=== PATIENT | male | born 1965 | race Hispanic/Latino ===

== ENCOUNTER 2021-11-23 06:42 | Day surgery (SDC) | payer OTHER ==
[2021-11-21 09:00] VITALS: BP 153/76
[2021-11-23] VITALS (14 sets, daily range): BP systolic 110–139; BP diastolic 72–80
[~2021-11-23] VITALS: Ht 175.3 cm; Wt 110.7 kg
[2021-11-23] MEDS ORDERED: LACTATED RINGERS 1000ML 1,000 ML IV ONE (07:11)
[2021-11-23] MEDS ORDERED: LIDOCAINE PF 100MG/5ML (2%) SYRINGE 5ML ONE (07:36)
[2021-11-23] MEDS ORDERED: PROPOFOL 10 MG/ML 20ML VIAL IV ONE (07:36)
[2021-11-23] MEDS ORDERED: FENTANYL CITRATE PF 50 MCG/1 ML 2ML VIAL ONE ×3 (07:37→08:52)
[2021-11-23] MEDS ORDERED: BUPIVACAINE/PF 0.25% 30ML VIAL IJ ONE (07:48)
[2021-11-23] MEDS ORDERED: LIDOCAINE HCL 1% MDV 50ML VIAL ONE (07:48)
[2021-11-23] MEDS ORDERED: BACITRACIN 28.4 GM OINT TP ONE (07:49)
[2021-11-23] MEDS ORDERED: CEFAZOLIN SODIUM 1 GM VIAL IVP ONE (08:00)
[2021-11-23] MEDS ORDERED: FAMOTIDINE 20MG VIAL IV ONE (08:18)
[2021-11-23] MEDS ORDERED: MIDAZOLAM HCL 1 MG/ML 2ML VIAL ONE (08:23)
[2021-11-23] MEDS ORDERED: ONDANSETRON 4MG INJ ONE (08:23)
== END 2021-11-23 11:32 | disposition home or self-care (01) ==
LOC: DAH 06:42
PROVIDERS: ATTEND Urology
DX: N47.1 Phimosis (principal); Z20.822 Contact with and (suspected) exposure to COVID-19; E78.5 Hyperlipidemia, unspecified; E11.9 Type 2 diabetes mellitus without complications; Z79.01 Long term (current) use of anticoagulants; Z79.899 Other long term (current) drug therapy; Z79.84 Long term (current) use of oral hypoglycemic drugs
CPT/HCPCS: 54161; 82948 ×2; 87635; A4215; A4221; A4222; A4223; A4510; A4600; A4663; A6260; C9803; J0690; J2001; J2250; J2405; J2704; J3010 ×2; J3490 ×2; J7120